=== PATIENT | male | born 2000 | race Caucasian/White ===

== ENCOUNTER 2024-04-29 22:19 | Emergency (ER) | payer BC ==
[~2024-04-29] VITALS: Ht 170.2 cm; Wt 54.4 kg
[2024-04-29] MEDS: ACETAMINOPHEN 500 MG TABLET PO ONE (23:01)
[2024-04-29 23:39] VITALS: BP 122/76; TEMP 98; O2SAT 98
== END 2024-04-29 23:40 | disposition home or self-care (01) ==
LOC: ER 22:19
DX: S06.0XAA Concussion with loss of consciousness status unknown, initial encounter (principal); F17.290 Nicotine dependence, other tobacco product, uncomplicated; W18.39XA Other fall on same level, initial encounter; Y93.89 Activity, other specified; Y92.89 Other specified places as the place of occurrence of the external cause; Y99.8 Other external cause status
CPT/HCPCS: A4606; A4663; A9150